=== PATIENT | male | born 1955 | race Caucasian/White ===

== ENCOUNTER 2016-05-21 09:05 | Day surgery (SDC) | payer OTHER ==
[2016-05-20 14:42] VITALS: BMI 25.2
[~2016-05-21] VITALS: Ht 180.3 cm; Wt 84.8 kg
[2016-05-21] VITALS (13 sets, daily range): BP systolic 118–135; BP diastolic 62–84; PULSE 80–92; RESP 11–21; Ht 180.3 cm; Wt 84.8 kg
[~2016-05-21 09:05] MED LIST: CEFAZOLIN 1 GM INJ ONE; CEFAZOLIN 1 GM/50 ML (PMX) 50 ML IVPB ONE; PROPOFOL 200 MG INJ ONE
--- NOTE | 2016-05-21 09:44 | HPN ---
Date/Time of Note Date/Time of Note DATE: 05/21/16 TIME: 09:44 Interval H&P Admission Note Pt. seen H&P reviewed: No system changes ABRAM MOSS MD May 21, 2016 09:44
[2016-05-21] MEDS ORDERED: LIDOCAINE 1%/EPI 30 ML INJ ONE (10:00)
[2016-05-21] MEDS ORDERED: GELATIN SIZE 100 SPONGE ONE (10:00)
[2016-05-21] MEDS ORDERED: THROMBIN 5000 UNIT VIAL ONE (10:01)
[2016-05-21] MEDS ORDERED: LOSA100T7 PO (10:04)
[2016-05-21] MEDS ORDERED: CHOL400T10 PO (10:04)
[2016-05-21] MEDS ORDERED: LIDOCAINE 2% (SDV) 5 ML INJ ONE (10:22)
[2016-05-21] MEDS ORDERED: MIDAZOLAM 1 MG/ML 2 ML INJ ONE (10:22)
[2016-05-21] MEDS ORDERED: SUCCINYLCHOLINE CHLORIDE 100 MG/5 ML SYG IV ONE (10:22)
[2016-05-21] MEDS ORDERED: PROPOFOL 20 ML ONE (10:22)
[2016-05-21] MEDS ORDERED: FENTAnyl 50 MCG/ML VIAL ONE (10:23)
[2016-05-21] MEDS ORDERED: DEXAMETHASONE 4 MG/ML 1 ML INJ ONE (10:38)
[2016-05-21] MEDS ORDERED: METOCLOPRAMIDE 10 MG INJ ONE (10:38)
[2016-05-21] MEDS ORDERED: ONDANSETRON 4 MG INJ ONE (10:38)
[2016-05-21] MEDS ORDERED: PHENYLephrine (100 MCG/ML) 5ML SYG ONE (10:46)
[2016-05-21] MEDS ORDERED: ONDANSETRON 4 MG INJ IV PRN (11:00)
[2016-05-21] MEDS ORDERED: DIPHENHYDRAMINE 50 MG INJ IV PRN (11:00)
[2016-05-21] MEDS ORDERED: MEPERIDINE 25 MG INJ IV PRN (11:00)
[2016-05-21] MEDS ORDERED: PROCHLORPERAZINE 10 MG INJ IV PRN (11:00)
[2016-05-21] MEDS ORDERED: HYDROmorphONE (0.2 MG/ML) 10ML SYG IV PRN ×3 (11:00)
[2016-05-21] MEDS ORDERED: FENTAnyl 50 MCG/ML VIAL IV PRN (11:00)
[2016-05-21] MEDS ORDERED: HYDROmorphONE 2 MG/ML SYG ONE (11:19)
[2016-05-21] MEDS ORDERED: BACITRACIN/POLYMYXIN 28.35 GM OINT TOP ONE (12:12)
--- NOTE | 2016-05-21 12:32 | OPPN ---
Date/Time of Note Date/Time of Note DATE: 05/21/16 TIME: 12:30 Operative/Procedure Note Pre-Operative Diagnosis Right parotid mass Post-Operative Diagnosis Same Procedure 1. Right parotidectomy with facial nerve dissection 2. Sternocleidomastoid rotational muscle flap Surgeon: ABRAM MOSS MD Anesthesiologist: REBECA JACQUES MD Findings Multi-lobulated lymphoid mass with pockets of purulence Blood Usage/Administration None Implants/Grafts: Not applicable Estimated blood loss: 100 - 150 ml's Drains: Not applicable Specimens Right parotid mass Complications: None Anesthesia type: general ABRAM MOSS MD May 21, 2016 12:32
--- NOTE | 2016-05-21 12:44 | OPR ---
Date/Time of Note Date/Time of Note DATE: 05/21/16 TIME: 12:35 Operative Report Procedure Date: May 21, 2016 Preoperative Diagnosis Right parotid mass Postoperative Diagnosis Same Operation Performed 1. Right parotidectomy with facial nerve dissection 2. Right rotational sternocleidomastoid muscle flap Surgeon: ABRAM MOSS MD Anesthesia: general Anesthesiologist: REBECA JACQUES MD Estimated Blood Loss: 100 - 150 ml's Specimens Right parotid mass Tubes/Drains None Complications: None Pt Condition Post Procedure: stable Disposition: PACU Indications The patient is a 61-year-old male with an enlarging and painful right parotid mass. 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 Recommendation was made for excision. The risks benefits and alternatives of surgery were discussed. The risks included but are not limited to: Bleeding, infection, numbness, kriss syndrome, recurrence of mass, facial nerve injury, need for further surgery, no improvement in pain, no improvement in symptoms. The patient understood these and signed consent. Operative Findings Multilobulated right parotid mass with pockets of purulence Procedure Description After informed consent was obtained, the patient was brought back to the operating room suite. He was intubated by anesthesia and sedated. A shoulder roll was placed in his head was turned to the left side. A modified Andrea incision was marked in the right side. The incision was injected with 1% lidocaine with epinephrine. The patient was then prepped and draped in usual sterile fashion. A 15 blade was used to make the incision. A subcutaneous flap was then elevated. The plane between the parotid gland and the sternocleidomastoid muscle was dissected. The pretragal fascia was then dissected. The parotid gland was retracted anteriorly. Blunt dissection in the direction of the facial nerve trunk was performed until the nerve was found using the tympanomastoid suture line as a landmark. The lower division was then followed anteriorly. Immediately a large multilobulated mass was identified. Tedious dissection to dissect the nerves off of the mass was performed. Eventually after further dissection, the mass was freed. The SMAS layer was dissected off the superficial parotid tissue in order to preserve it. The mass was then sent to the pathologist for evaluation. Due to the large size of the mass, a rotational muscle flap was performed. The area was irrigated profusely with saline. The anterior head of the sternocleidomastoid muscle was then dissected off of the mastoid process. The anterior muscle flap was then rotated anteriorly and inset in the defect to fill it. The flap was then secured with 3-0 Vicryl sutures. Prior to insetting the flap, Surgicel was placed within the wound bed. The wound was then closed in multiple layers. 3-0 Vicryl suture was used to close the deep dermis and 5-0 nylon was used to close the skin in a running fashion. Antibiotic ointment was placed on the incision followed by a pressure dressing. The patient was then exhibited by anesthesia and brought to recovery room in stable condition. The facial nerve in the recovery room was tested to function properly. ABRAM MOSS MD May 21, 2016 12:43
[2016-05-21] MEDS ORDERED: OXYCODONE/ACETAMINOPHEN (5/325) TAB PO ONE (14:30)
== END 2016-05-21 16:24 | disposition home or self-care (01) ==
LOC: SDS 09:05
PROVIDERS: ATTEND Otolaryngology
DX: D11.0 Benign neoplasm of parotid gland (principal); I10 Essential (primary) hypertension
CPT/HCPCS: 14040; 42420; 88307; J0330; J0690; J1100; J1170; J2250; J2370; J2405; J2765; J3010; Z7610